=== PATIENT | male | born 1955 | race Caucasian/White ===

== ENCOUNTER 2017-03-21 07:21 | Day surgery (SDC) | payer MEDICARE, MEDICAID ==
[~2017-03-21] VITALS: Ht 167.6 cm; Wt 90.6 kg
[2017-03-21 09:16] VITALS: Ht 167.6 cm; Wt 90.6 kg
[2017-03-21] MEDS ORDERED: DIABETIC (09:21)
[2017-03-21] MEDS ORDERED: HTN (09:21)
[2017-03-21] MEDS ORDERED: HIGH CHOLESTEROL (09:21)
[2017-03-21 09:51] VITALS: BP 189/87; PULSE 71; RESP 12
[2017-03-21 10:35] VITALS: BP 151/89; PULSE 72; RESP 12
--- NOTE | 2017-04-15 08:30 | GILP ---
DATE OF PROCEDURE: SURGEON: Jez Collado MD. PROCEDURE: 1. Procedures esophagogastroduodenoscopy and biopsy. 2. Colonoscopy and biopsy. PREOPERATIVE DIAGNOSES: 1. Positive occult blood in stool. 2. Screening colonoscopy. 3. Abdominal pain. POSTOPERATIVE DIAGNOSES: 1. Reflux esophagitis with erosions. 2. Gastritis with erosions. 3. Gastric mucosal biopsies were taken for Helicobacter pylori test. 4. Colonoscopy all the way to the cecum. 5. Poor preparation making the exam very suboptimal especially solid stool in the cecum and scattered solid stool all over. 6. Three small colon polyps were removed using the biopsy forceps. 7. Internal hemorrhoids. INDICATION: The patient is a 61-year-old male patient, who was noted to have positive occult blood in stool. She never had a screening colonoscopy. He also was complaining of upper abdominal pain not responding to therapy. The patient was scheduled for endoscopy and colonoscopy for further evaluation. The procedures and possible complications were well-explained to the patient. He understood and consented to the procedure. EGD: Under influence of anesthesia, the gastroscope was carefully introduced into the esophagus under direct vision it was advanced to the stomach. Into the pylorus, to the duodenal bulb, and descending colon. FINDINGS: Esophagus: The patient had reflux esophagitis with erosions. Stomach: The patient had gastritis with erosions. Gastric mucosal biopsies were taken for Helicobacter pylori test. COLONOSCOPY: The colonoscope was carefully introduced to the rectum. Under direct vision it was advanced all the way to the cecum. FINDINGS: The patient had poor preparation with solid stool in the cecum and scattered all over, making the exam very suboptimal. The patient was noted to have 3 small colon polyps, and they were removed using the biopsy forceps. He had internal hemorrhoids. He tolerated the procedures very well. There is no complications from the procedures. At the end of the procedures he was awake, with stable vital signs. He was discharged home to the care of his family. IMPRESSION: 1. Reflux esophagitis with erosions. 2. Gastritis with erosions. Gastric mucosal biopsies were taken for Helicobacter pylori test. 3. Colonoscopy all the way to the cecum. 4. Poor preparation, with solid stool in the cecum and scattered all over making the exam very suboptimal. 5. Three small colon polyps were removed using the biopsy forceps. 6. Internal hemorrhoids. PLAN: 1. Omeprazole 40 mg orally every morning. 2. Await histopathology reports. 3. Because of the poor preparation and suboptimal nature of examination, would recommend repeat colonoscopy in 1 year with better preparation. Dictated By: MD ANÍBAL Gipson/nuris/billy /Document#: [id number] CC: Jez Collado MD;*EndCC*
== END 2017-03-21 11:47 | disposition home or self-care (01) ==
LOC: GIL 07:21
PROVIDERS: ATTEND Internal Medicine Gastroenterology
DX: Z12.11 Encounter for screening for malignant neoplasm of colon (principal); D12.3 Benign neoplasm of transverse colon; K21.0 Gastro-esophageal reflux disease with esophagitis; K29.70 Gastritis, unspecified, without bleeding; K64.8 Other hemorrhoids; E11.9 Type 2 diabetes mellitus without complications; Z79.4 Long term (current) use of insulin; E78.5 Hyperlipidemia, unspecified; I10 Essential (primary) hypertension
CPT/HCPCS: 87081; 88305